=== PATIENT | female | born 1950 | race Hispanic/Latino ===

== ENCOUNTER → 2024-08-23 | Outpatient (CLI) | payer MEDICARE, OTHER ==
--- NOTE | 2024-08-23 09:53 | HMCIMG ---
BONE DENSITOMETRY: HISTORY: POST MENOPAUSAL Comparison: none FINDINGS: BMD measured at AP spine L1-L4 is 0.855 g/cm2 with a T-score of -1.7 Bone density is between 10 and 25% below young normal. This patient is considered osteopenic. Fracture risk is moderate. BMD measured at Left Femoral Neck is 0.747 g/cm2 with a T-score of -1.1 Bone density is between 10 and 25% below young normal. This patient is considered osteopenic. Fracture risk is moderate. BMD measured at Left Femoral Total is 0.750 g/cm2 with a T-score of -1.6 Bone density is between 10 and 25% below young normal. This patient is considered osteopenic. Fracture risk is moderate. IMPRESSION: Osteopenia. Treatment and follow-up recommended.
== END | disposition home or self-care (01) ==
LOC: RAH 08:04
PROVIDERS: ATTEND Internal Medicine
DX: M85.89 Other specified disorders of bone density and structure, multiple sites (principal); Z78.0 Asymptomatic menopausal state
CPT/HCPCS: 77080

== ENCOUNTER 2025-01-07 19:53 | Observation (INO) | payer MEDICARE, OTHER ==
[~2025-01-07] VITALS: Ht 154.9 cm; Wt 56.5 kg
--- NOTE | 2025-01-07 20:24 | ERN ---
ED Note History of Present Illness Stated Complaint: C/O LEFT RIB AREA PAIN RADIATING TO BACK Chief Complaint: Rib Pain Time Seen by MD: 19:58 Time Seen by Midlevel: 19:58 Dictation: The patient is a 74-year-old female with a history of diabetes, hypertension, hyperlipidemia who presents to the emergency department with complaints of left upper back pain that radiates to the front onset two weeks ago. Patient denies any trauma, denies any cough or shortness of breath. Reports she has been seen by her primary doctor who has ordered x-rays and a calcium score. Patient reports her PCP told her that her pain was due to arthritis. Allergies: Coded Allergies: No Known Allergies (Unverified Allergy, Unknown, 01/07/25) Past Medical History Past Medical History: Arthritis, High Cholesterol, Hypertension, Other Additional Past Medical Hx: HX OF OSTEOPOROSIS Surgical History: Hysterectomy, Cholecystectomy RN Note Reviewed/Agreed w/PFSH: Yes Review of System Dictation Constitutional: Negative for fever,chills, and weight loss Eyes: Negative for injury, pain,redness, and discharge ENT: Negative for injury,pain or swelling Cardiovascular: Negative for chest pain, palpitations, and edema Respiratory: Negative for shortness of breath, cough, and wheezing, Abdomen/GI: Negative for abdominal pain, nausea, vomiting, diarrhea, and constipation Back: Negative for injury positive for upper back pain : Negative for injury, bleeding and discharge MS/Extremity: Negative for injury and deformity Skin: Negative for rash, and discoloration Neuro: Negative for headache, weakness, numbness, tingling, and seizure Psych: Negative for suicide ideation, homicidal ideation, and hallucinations Initial Vital Sign VS Vital Signs Date Time Temp Pulse Resp B/P (MAP) Pulse Ox O2 Delivery O2 Flow Rate FiO2 01/07/25 19:58 99.9 105 20 192/105 96 Room Air 01/07/25 21:52 0 21 Physical Exam Dictation Vital Signs reviewed General Appearance: Alert, oriented x 3, no acute distress, well developed, nourished. Head and Face: non-traumatic. Eyes: PERRL, pink conjunctivas, eyelid no trauma, anterior chamber with arcus senilis. Ears: Pinnas intact and no signs of trauma or erythema ear canals clear and no discharge TM no erythema Nose: No discharge, no bleeding. Oropharynx: Mouth normal, tongue pink. pharynx clear,no erythema, tonsils no exudates, no abscesses noted, mucous membrane moist Neck: Supple, non-tender, no thyromegaly, no masses, no JVD, no bruits Breast:Deferred Chest:No tenderness, no crepitus, no paradoxical movement, no retractions Lungs:Clear, well-ventilated, symmetric, no rales, no wheezing, no rhonchi, no stridor, good breath sounds bilaterally Heart: Regular rate, regular rhythm, no murmur, no gallops Vascular: no peripheral edema, Abdomen: Soft, positive bowel sounds, nondistended, no guarding, nontender, no rebound, no masses no hepatomegaly, no splenomegaly, no Bales's sign, no hernias. Rectal: Deferred Genital: Deferred Neurological: Normal speech, motor function intact, sensory function intact Musculoskeletal: Neck nontender, full range of motion, back nontender, full range of motion, Extremities: nontender, full range of motion Skin: Color pink, dry, no turgor, no rash, no lacerations, no abrasions, no contusions. Lymphatic: Deferred Results (Laboratory/Radiology) Laboratory/Radiology Laboratory Tests Test 01/07/25 20:27 01/07/25 20:32 01/07/25 22:04 Influenza Type A Antigen Negative For Type A Influenza Type B Antigen Negative For Type B SARS-CoV-2 Antigen (Rapid) PRESUMPTIVE NEGATIVE White Blood Count 7.7 K/uL (4.8-10.8) Red Blood Count 4.07 MIL/uL (4.00-5.50) Hemoglobin 11.8 g/dL (12.0-16.0) L Hematocrit 34.1 % (36-48) L Mean Corpuscular Volume 83.8 fL (79-99) Mean Corpuscular Hemoglobin 29.0 pg (27.0-33.0) Mean Corpuscular Hemoglobin Concent 34.6 g/dL (32.0-36.0) Red Cell Distribution Width 13.0 % (11.0-15.5) Platelet Count 287 K/uL (130-400) Mean Platelet Volume 10.2 fL (7.5-10.5) Immature Granulocyte % (Auto) 0.5 % (0-1) Neutrophils (%) (Auto) 79.6 % (40.0-77.0) H Lymphocytes (%) (Auto) 12.3 % (21.0-51.0) L Monocytes (%) (Auto) 6.9 % (3.0-13.0) Eosinophils (%) (Auto) 0.3 % (0.0-8.0) Basophils (%) (Auto) 0.4 % (0.0-5.0) Neutrophils # (Auto) 6.1 K/uL (1.8-7.7) Lymphocytes # (Auto) 1.0 K/uL (1.0-4.8) Monocytes # (Auto) 0.5 K/uL (0.1-1.0) Eosinophils # (Auto) 0.02 K/uL (0.00-0.70) Basophils # (Auto) 0.03 K/uL (0.00-0.20) Absolute Immature Granulocyte (auto 0.04 K/uL (0-1) Nucleated Red Blood Cells 0.0 % (0.0-0.19) Sodium Level 128 mmol/L (136-145) L Potassium Level 4.0 mmol/L (3.5-5.1) Chloride Level 90 mmol/L (101-111) *L Carbon Dioxide Level 21 mmol/L (21-32) Blood Urea Nitrogen 13 mg/dL (7-18) Creatinine 0.5 mg/dL (0.5-1.0) Glomerular Filtration Rate Calc 98 mL/min (>90) Random Glucose 110 mg/dL (70-105) H Total Calcium 9.2 mg/dL (8.5-10.1) Total Creatine Kinase 123 U/L (21-232) Troponin I High Sensitivity 7 ng/L (4-50) Urine Color YELLOW (YELLOW) Urine Appearance CLEAR (CLEAR) Urine pH 6.0 (5.0-8.0) Urine Specific [place] 1.010 (1.001-1.031) Urine Protein NEGATIVE mg/dL (NEGATIVE) Urine Glucose (UA) NEGATIVE mg/dL (NEGATIVE) Urine Ketones 40 mg/dL (NEGATIVE) H Urine Occult Blood SMALL (NEGATIVE) H Urine Nitrate NEGATIVE (NEGATIVE) Urine Bilirubin NEGATIVE mg/dL (NEGATIVE) Urine Urobilinogen 0.2 mg/dL (0.2-1.0) Urine Leukocyte Esterase MODERATE Brigette/uL Urine RBC 2-5 /HPF (0-1) H Urine WBC 11-25 /HPF (0-1) H Urine Squamous Epithelial Cells RARE /HPF (0-2) Urine Other Crystals (Auto) 1 /HPF (None Seen) Urine Bacteria RARE /HPF (None Seen) REASON: sob ORDERING PHYSICIAN: TAMIA EASLEY PROCEDURE: CXR1VW - CHEST 1VW EXAM: CR Chest, 1 view CLINICAL HISTORY: Shortness of breath. COMPARISON: Chest radiograph dated 12/11/2024. FINDINGS: The lungs show no infiltrates or other acute findings. Mild bibasilar atelectasis. Mild COPD. No pleural effusion or pneumothorax. The cardiomediastinal silhouette is within normal limits. Mild atherosclerotic aorta. No acute osseous abnormality. IMPRESSION: No acute cardiopulmonary process is evident. Mild bibasilar atelectasis. A new finding. Stable mild COPD. /[place] Labs Reviewed?: Yes EKG: (+) rhythm (With the) EKG Comment: Date:01/07/2025 Time:2022 Ventricular rate:107 DE interval:193 QRS duration:91 QT/QTc:337/450 EKG interpretation: Sinus tachycardia Reviewed by ED Attending No STEMI ED Course ED Course Orders Procedure Category Date Status Time Cbc With Differential LAB 01/07/25 Complete 20:11 Chest 1vw RAD 01/07/25 Resulted 20:11 12 Lead Ekg Tracing- EKG 01/07/25 Complete Technical 20:11 Creatine Kinase, Total LAB 01/07/25 Complete 20:11 Troponin I High LAB 01/07/25 Complete Sensitivity 20:11 Basic Metabolic Panel LAB 01/07/25 Complete 20:11 Covid19 (Sars Antigen LAB 01/07/25 Complete Rapid) 20:11 Influenza Type A & B, LAB 01/07/25 Complete Rapid 20:11 Acetaminophen 500mg PHA 01/07/25 Complete Tab (Tylenol 500mg T 20:30 0.9%Nacl 1000ml (Ns PHA 01/07/25 Complete 1000ml) 21:00 Urinalysis Profile LAB 01/07/25 Complete 21:05 Labetalol 20mg Syg PHA 01/07/25 Complete (Trandate 20mg Syg) 22:00 Culture Urine BHAVNA 01/07/25 Logged 22:13 Ceftriaxone 1g Vial PHA 01/07/25 In Process (Rocephine 1g Inj) 22:30 Edm Admit Bridge Order ADM 01/07/25 Transmitted 22:18 Current Medications Medications (Trade) Dose Ordered Sig/Jaiden Route PRN Reason Start Time Stop Time Status Last Admin Dose Admin Acetaminophen (TYLenol 500MG TAB) 1,000 mg ONCE ONCE PO 01/07/25 20:30 01/07/25 20:31 DC 01/07/25 20:35 Ceftriaxone Sodium (ROCEphine 1G INJ) 1 gm ONCE ONCE IVPB 01/07/25 22:30 01/07/25 22:31 Labetalol HCl (TRANdate 20MG SYG) 10 mg ONCE ONCE IV 01/07/25 22:00 01/07/25 22:01 DC 01/07/25 22:03 Sodium Chloride 1,000 ml @ 0 mls/hr ONCE ONCE IV 01/07/25 21:00 01/07/25 21:02 DC 01/07/25 21:19 Vital Signs Date Time Temp Pulse Resp B/P (MAP) Pulse Ox O2 Delivery O2 Flow Rate FiO2 01/07/25 22:03 100 187/102 01/07/25 21:52 100 18 187/102 97 Room Air* 0 21 01/07/25 19:58 99.9 105 20 192/105 96 Room Air Medical Decision Making MDM MDM: The patient is a 74-year-old female with a history of diabetes, hypertension, hyperlipidemia who presents to the emergency department with complaints of left upper back pain that radiates to the front onset two weeks ago. Patient denies any trauma, denies any cough or shortness of breath. Repo rts she has been seen by her primary doctor who has ordered x-rays and a calcium score. Patient reports her PCP told her that her pain was due to arthritis. CBC showed no leukocytosis, mild normocytic anemia, chemistry showed hyponatremia, hypochloremia, normal renal function, negative troponin, urinalysis positive for leukocyte esterase, serology negative, chest x-ray showed no consolidation. Patient will be admitted for IV hydration and further evaluation and treatment. Differential diagnosis: ACS, pneumonia, back strain Comorbidities: HTN, osteoporosis. Tests considered and not ordered secondary to shared decision making include: none Previous outside records reviewed: none Risk of complication and/or morbidity or mortality of patient management: The patient meets criteria for admission. Need for emergency major/minor surgery: No There are no social concerns with this patient. I independently interpreted the tests I ordered (labs, urinalysis, etc.). I discussed the case with the hospitalist for admission. who accepts admission I discussed the case with the following specialists: none. Historian: pateint. I independently interpreted imaging studies and EKGs that I ordered (US, CT, XR, EKG, etc.). External chart review: none. Medical management and examination interpretation discussions were had by me with other qualified healthcare professionals as indicated for the patient's care. DX & DISP Disposition: Inpatient Decision to Admit Date: Jan 07, 2025 Decision to Admit Time: 22:29 Departure Impression: Primary Impression: Dehydration Additional Impressions: Hypochloremia, Hyponatremia, UTI (urinary tract infection), Uncontrolled hypertension Condition: Stable Referrals: ELIZ TREADWELL MD (PCP) I have reviewed the case, and I agree with, Diagnosis and Plan TAMIA EASLEY [facility] Jan 07, 2025 20:24
--- NOTE | 2025-01-07 20:29 | EKG ---
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
[2025-01-07 20:40] LABS: IMMATURE GRANULOCYTE ABSOLUTE 0.04 K/uL (0-1); NUCLEATED RED BLOOD CELLS 0.0 % (0.0-0.19); PLATELET COUNT (AUTO) 287 K/uL (130-400); RED BLOOD CELL COUNT(AUTO) 4.07 MIL/uL (4.00-5.50); RED CELL DISTRIBUTION WIDTH 13.0 % (11.0-15.5); WHITE BLOOD COUNT (AUTO) 7.7 K/uL (4.8-10.8)
[2025-01-07 20:53] LABS: CREATINE KINASE, TOTAL 123.0 U/L (21-232); GLUCOSE,RANDOM 110.0 mg/dL (70-105); SODIUM SERUM 128.0 mmol/L (136-145); UREA NITROGEN, BLOOD 13.0 mg/dL (7-18)
[2025-01-07 20:54] LABS: CREATININE 0.5 mg/dL (0.5-1.0); GLOMERULAR FILTR. RATE CALC 98.0 mL/min (>90)
[2025-01-07 21:01] LABS: COVID19 (SARS ANTIGEN RAPID) PRESUMPTIVE NEGATIVE (NEGATIVE)
[2025-01-07 21:02] LABS: INFLUENZA TYPE A Negative For Type A (NEGATIVE); INFLUENZA TYPE B Negative For Type B (NEGATIVE)
[2025-01-07] MEDS: 0.9%NACL 1000ML 1,000 ML IV ONE (21:19)
[2025-01-07 22:11] LABS: APPEARANCE,URINE CLEAR (CLEAR); GLUCOSE, URINE (UA) NEGATIVE (NEGATIVE); LEUKOCYTE ESTERASE ,URINE MODERATE Leu/uL (NEGATIVE); NITRATE,URINE NEGATIVE (NEGATIVE); OCCULT BLOOD,URINE SMALL (NEGATIVE)
[2025-01-07 22:12] LABS: ADD UA MICROSCOPIC YES
--- NOTE | 2025-01-07 22:14 | HMCIMG ---
EXAM: CR Chest, 1 view CLINICAL HISTORY: Shortness of breath. COMPARISON: Chest radiograph dated 12/11/2024. FINDINGS: The lungs show no infiltrates or other acute findings. Mild bibasilar atelectasis. Mild COPD. No pleural effusion or pneumothorax. The cardiomediastinal silhouette is within normal limits. Mild atherosclerotic aorta. No acute osseous abnormality. IMPRESSION: No acute cardiopulmonary process is evident. Mild bibasilar atelectasis. A new finding. Stable mild COPD. /[place]
[2025-01-07 22:19] LABS: SQUAMOUS EPITHELIAL CELL,UR RARE /HPF (0-2); UNCLASSIFIED CRYSTAL 1 /HPF (None Seen)
[2025-01-07] MEDS: Solu-medROL 40MG VIAL IVP ONE (22:35)
[2025-01-07] MEDS: 0.9%NACL 1000ML 1,000 ML IV SCH (22:35)
[2025-01-07 23:55] VITALS: BP 164/100; PULSE 88; RESP 21; TEMP 97.6
--- NOTE | 2025-01-07 23:55 | NUR ---
ADMISSION NOTE PATIENT ARRIVED VIA STRETCHER, AMBULATED TO BED WITH STEADY GAIT, WEIGHT TAKEN WITH STANDING SCALE. PATIENT ALERT AND ORIENTED X 4, NO VISIBLE DISTRESS NOTED, PATIENT ABLE TO SIT AT EDGE OF BED WITHOUT DIFFICULTY AND LAY BACK IN BED INDEPENDENTLY WITHOUT DISTRESS. PATIENT STATED NO PAIN AT REST. PER PATIENT, "WHEN I TURN A CERTAIN WAY I GET BACK PAIN TO LEFT SIDE ALMOST TO RIB AREA. I THOUGHT IT WAS A HEART ATTACK." PATIENT DENIES ANY PAIN AT THIS TIME, DECLINED PAIN MEDICATION. PLAN OF CARE DISCUSSED WITH PATIENT AND THAT IS AT BEDSIDE. PATIENT AND ORIENTED TO ROOM, VISITING HOURS, CALL LIGHT BUTTON, LIGHTING, FALL PREVENTION. CALL BUTTON PLACED ON BED WITHIN REACH.
[2025-01-08] VITALS (7 sets, daily range): BP systolic 144–171; BP diastolic 70–88; PULSE 74–85; RESP 18; TEMP 97.9–98.2; O2SAT 94
[2025-01-08] MEDS ORDERED: LISI5TAB21 PO (00:33)
[2025-01-08] MEDS ORDERED: ASPI-1443 PO (00:33)
[2025-01-08] MEDS ORDERED: LISI1TAB51 PO (00:33)
[2025-01-08] MEDS ORDERED: PRAV20TA59 PO (00:33)
[2025-01-08] MEDS ORDERED: UBID200C18 PO (00:33)
[2025-01-08] MEDS ORDERED: CEVI30CA7 PO (00:33)
[2025-01-08] MEDS ORDERED: VITA1CAP17 PO (00:33)
[2025-01-08] MEDS ORDERED: CALC200T16 PO (00:33)
[2025-01-08] MEDS ORDERED: MELO-108 PO (00:33)
[2025-01-08] MEDS ORDERED: CHOL2000 PO (00:33)
[2025-01-08 05:36] LABS: IMMATURE GRANULOCYTE ABSOLUTE 0.04 K/uL (0-1); NUCLEATED RED BLOOD CELLS 0.0 % (0.0-0.19); PLATELET COUNT (AUTO) 257 K/uL (130-400); RED BLOOD CELL COUNT(AUTO) 3.91 MIL/uL (4.00-5.50); RED CELL DISTRIBUTION WIDTH 13.2 % (11.0-15.5); WHITE BLOOD COUNT (AUTO) 4.7 K/uL (4.8-10.8)
[2025-01-08 05:45] LABS: CREATININE 0.6 mg/dL (0.5-1.0); GLOMERULAR FILTR. RATE CALC 94.0 mL/min (>90); GLUCOSE,RANDOM 143.0 mg/dL (70-105); SODIUM SERUM 136.0 mmol/L (136-145); UREA NITROGEN, BLOOD 12.0 mg/dL (7-18)
[2025-01-08] MEDS: ENOXAPARIN SODIUM 30 MG/0.3 ML SQ SCH (07:49)
--- NOTE | 2025-01-08 09:53 | NUR ---
DCP:HOME Pt currently lives at home with her Jason Christianson [phone]. Pt does not have any DME, home health, or provider services. pt states that she is able to complete ADLs independently. PCP is Dr. Adams and uses [facility] for any RX needs. At [place] pt will want to go home and family can assist with transportation. Addendum: 01/08/25 at 0954 by WALE AC SS Amended: Links added.
--- NOTE | 2025-01-08 21:34 | PN ---
PROGRESS NOTE PROGRESS NOTE DATE OF PROGRESS NOTE: 01/08/25 SUBJECTIVE: No new chest VITAL SIGNS Vital Signs Date Time Temp Pulse Resp B/P (MAP) Pulse Ox O2 Delivery O2 Flow Rate FiO2 01/08/25 16:00 97.9 75 18 159/84 97 Room Air 01/08/25 07:30 0 21 PHYSICAL EXAM: Initial Vital Sign VS Vital Signs Date Time Temp Pulse Resp B/P (MAP) Pulse Ox O2 Delivery O2 Flow Rate FiO2 01/07/25 19:58 99.9 105 20 192/105 96 Room Air 01/07/25 21:52 0 21 Physical Exam Dictation Vital Signs reviewed General Appearance: Alert, oriented x 3, no acute distress, well developed, nourished. Head and Face: non-traumatic. Eyes: PERRL, pink conjunctivas, eyelid no trauma, anterior chamber with arcus senilis. Ears: Pinnas intact and no signs of trauma or erythema ear canals clear and no discharge TM no erythema Nose: No discharge, no bleeding. Oropharynx: Mouth normal, tongue pink. pharynx clear,no erythema, tonsils no exudates, no abscesses noted, mucous membrane moist Neck: Supple, non-tender, no thyromegaly, no masses, no JVD, no bruits Breast:Deferred Chest:No tenderness, no crepitus, no paradoxical movement, no retractions Lungs:Clear, well-ventilated, symmetric, no rales, no wheezing, no rhonchi, no stridor, good breath sounds bilaterally Heart: Regular rate, regular rhythm, no murmur, no gallops Vascular: no peripheral edema, Abdomen: Soft, positive bowel sounds, nondistended, no guarding, nontender, no rebound, no masses no hepatomegaly, no splenomegaly, no Bales's sign, no hernias. Rectal: Deferred Genital: Deferred Neurological: Normal speech, motor function intact, sensory function intact Musculoskeletal: Neck nontender, full range of motion, back nontender, full range of motion, Extremities: nontender, full range of motion Skin: Color pink, dry, no turgor, no rash, no lacerations, no abrasions, no contusions. Lymphatic: Deferred LABORATORY: Laboratory Result(s) Test 01/07/25 22:04 01/08/25 05:30 01/08/25 05:40 01/08/25 10:50 Urine Color YELLOW (YELLOW) Urine Appearance CLEAR (CLEAR) Urine pH 6.0 (5.0-8.0) Urine Specific [place] 1.010 (1.001-1.031) Urine Protein NEGATIVE mg/dL (NEGATIVE) Urine Glucose (UA) NEGATIVE mg/dL (NEGATIVE) Urine Ketones 40 mg/dL (NEGATIVE) Urine Occult Blood SMALL (NEGATIVE) Urine Nitrate NEGATIVE (NEGATIVE) Urine Bilirubin NEGATIVE mg/dL (NEGATIVE) Urine Urobilinogen 0.2 mg/dL (0.2-1.0) Urine Leukocyte Esterase MODERATE Brigette/uL Urine RBC 2-5 /HPF (0-1) Urine WBC 11-25 /HPF (0-1) Urine Squamous Epithelial Cells RARE /HPF (0-2) Urine Other Crystals (Auto) 1 /HPF (None Seen) Urine Bacteria RARE /HPF (None Seen) White Blood Count 4.7 K/uL (4.8-10.8) Red Blood Count 3.91 MIL/uL (4.00-5.50) Hemoglobin 11.5 g/dL (12.0-16.0) Hematocrit 32.5 % (36-48) Mean Corpuscular Volume 83.1 fL (79-99) Mean Corpuscular Hemoglobin 29.4 pg (27.0-33.0) Mean Corpuscular Hemoglobin Concent 35.4 g/dL (32.0-36.0) Red Cell Distribution Width 13.2 % (11.0-15.5) Platelet Count 257 K/uL (130-400) Mean Platelet Volume 9.9 fL (7.5-10.5) Immature Granulocyte % (Auto) 0.9 % (0-1) Neutrophils (%) (Auto) 86.0 % (40.0-77.0) Lymphocytes (%) (Auto) 11.4 % (21.0-51.0) Monocytes (%) (Auto) 1.5 % (3.0-13.0) Eosinophils (%) (Auto) 0.0 % (0.0-8.0) Basophils (%) (Auto) 0.2 % (0.0-5.0) Neutrophils # (Auto) 4.0 K/uL (1.8-7.7) Lymphocytes # (Auto) 0.5 K/uL (1.0-4.8) Monocytes # (Auto) 0.1 K/uL (0.1-1.0) Eosinophils # (Auto) 0.00 K/uL (0.00-0.70) Basophils # (Auto) 0.01 K/uL (0.00-0.20) Absolute Immature Granulocyte (auto 0.04 K/uL (0-1) Nucleated Red Blood Cells 0.0 % (0.0-0.19) Sodium Level 136 mmol/L (136-145) Potassium Level 3.8 mmol/L (3.5-5.1) Chloride Level 98 mmol/L (101-111) Carbon Dioxide Level 22 mmol/L (21-32) Blood Urea Nitrogen 12 mg/dL (7-18) Creatinine 0.6 mg/dL (0.5-1.0) Glomerular Filtration Rate Calc 94 mL/min (>90) Random Glucose 143 mg/dL (70-105) Total Calcium 8.9 mg/dL (8.5-10.1) Whole Blood Glucose 152 MG/DL (70-110) 174 MG/DL (70-110) Bedside Glucose Comment Notified Nurse Test 01/08/25 16:37 01/08/25 20:01 Whole Blood Glucose 94 MG/DL (70-110) 118 MG/DL (70-110) Microbiology Results Date/Time Source Procedure Growth Status 01/07/25 22:04 Urine,Clean Catch - Preliminary Resulted INPATIENT MEDS: Current Medications Medications Dose Ordered Sig/Jaiden Start Time Stop Time Status Last Admin Sodium Chloride 1,000 ml @ 100 mls/hr Q10H 01/07/25 22:30 02/06/25 22:29 01/08/25 18:33 Enoxaparin Sodium 30 mg DAILY 01/08/25 09:00 02/07/25 08:59 01/08/25 07:49 Ceftriaxone Sodium 1 gm Q24H 01/08/25 22:30 01/18/25 22:29 Hydromorphone HCl 0.5 mg Q4H PRN 01/07/25 22:30 01/12/25 22:29 Ondansetron HCl 4 mg Q6H PRN 01/07/25 22:30 02/06/25 22:29 Insulin Human Regular INSULIN SLIDING SCAL... ACHS 01/08/25 07:30 02/07/25 07:29 Clonidine HCl 0.1 mg Q4H PRN 01/08/25 07:00 02/07/25 06:59 Lisinopril 5 mg DAILY 01/09/25 09:00 02/08/25 08:59 Home Med DAILY 01/09/25 09:00 02/08/25 08:59 Home Med TID 01/09/25 09:00 02/08/25 08:59 Home Med DAILY 01/09/25 09:00 02/08/25 08:59 Home Med HS 01/09/25 21:00 02/08/25 20:59 Atorvastatin Calcium 20 mg HS 01/09/25 21:00 02/08/25 20:59 Home Med DAILY 01/09/25 09:00 02/08/25 08:59 Home Med DAILY 01/09/25 09:00 02/08/25 08:59 PROBLEM LIST: (1) Uncontrolled hypertension ICD Code: I10 - Essential (primary) hypertension (2) Hyponatremia ICD Code: E87.1 - Hypo-osmolality and hyponatremia PLAN: Noncardiac chest pain likely musculoskeletal cardiac enzymes to be monitored low risk for coronary artery disease with low cardiac calcium score Resume pain control follow-through ELIZ TREADWELL MD Jan 08, 2025 21:34
--- NOTE | 2025-01-08 21:34 | HP ---
HISTORY AND PHYSICAL NOTE DATE OF CONSULTATION: 01/08/25 REASON FOR CONSULTATION: chest pain HISTORY OF PRESENT ILLNESS: The patient is a 74-year-old female with a history of diabetes, hypertension, hyperlipidemia who presents to the emergency department with complaints of left upper back pain that radiates to the front onset two weeks ago. Patient denies any trauma, denies any cough or shortness of breath. Reports she has been seen by her primary doctor who has ordered x-rays and a calcium score. Patient reports her PCP told her that her pain was due to arthritis. Allergies: Coded Allergies: No Known Allergies (Unverified Allergy, Unknown, 01/07/25) Past Medical History Past Medical History: Arthritis, High Cholesterol, Hypertension, Other Additional Past Medical Hx: HX OF OSTEOPOROSIS Surgical History: Hysterectomy, Cholecystectomy RN Note Reviewed/Agreed w/PFSH: Yes Review of System Dictation Constitutional: Negative for fever,chills, and weight loss Eyes: Negative for injury, pain,redness, and discharge ENT: Negative for injury,pain or swelling Cardiovascular: Negative for chest pain, palpitations, and edema Respiratory: Negative for shortness of breath, cough, and wheezing, Abdomen/GI: Negative for abdominal pain, nausea, vomiting, diarrhea, and constipation Back: Negative for injury positive for upper back pain : Negative for injury, bleeding and discharge MS/Extremity: Negative for injury and deformity Skin: Negative for rash, and discoloration Neuro: Negative for headache, weakness, numbness, tingling, and seizure Psych: Negative for suicide ideation, homicidal ideation, and hallucinations ALLERGIES: Coded Allergies: No Known Allergies (Unverified Allergy, Unknown, 01/07/25) HOME MEDS: Reported Medications Vitamin B Complex & Vit C No.3 (B Complex with Vitamin C) 15-10-300 Capsule, 1 CAP PO DAILY for 7 Days, #7 CAP 0 Refills 01/08/25 Calcium Citrate (Calcium Citrate) 200 Mg (950 Mg) Tablet, 600 MG PO DAILY, TAB 01/08/25 Ubidecarenone (Co Q-10) 200 Mg Capsule, 1 CAP PO DAILY for 30 Days, #30 CAP 0 Refills 01/08/25 Cholecalciferol (Vitamin D3) (Vitamin D3) 50 Mcg (2000 Unit) Capsule, 1 CAP PO DAILY for 30 Days, #30 CAP 0 Refills 01/08/25 Cevimeline HCl (Cevimeline HCl) 30 Mg Capsule, 1 CAP PO TID for 30 Days, #90 CAP 0 Refills 01/08/25 Pravastatin Sodium (Pravastatin Sodium) 20 Mg Tablet, 1 TAB PO HS for 30 Days, #30 TAB 0 Refills 01/08/25 Lisinopril (Lisinopril) 5 Mg Tablet, 1 TAB PO DAILY for 30 Days, #30 TAB 0 Refills 01/08/25 Lisinopril/Hydrochlorothiazide (Lisinopril-Hctz 20-12.5 mg Tab) 20 Mg-12.5 Mg Tablet, 1 TAB PO HS for 30 Days, #30 TAB 0 Refills 01/08/25 Aspirin (Aspirin EC) 81 Mg Tablet.dr, 1 TAB PO DAILY for 30 Days, #30 TAB 0 Refills 01/08/25 Discontinued Reported Medications Meloxicam (Meloxicam) 15 Mg Tablet, 0.5 TAB PO DAILY for 30 Days, #30 TAB 0 Refills 01/08/25 INPATIENT MEDS: Current Medications Medications Dose Ordered Sig/Jaiden Start Time Stop Time Status Last Admin Sodium Chloride 1,000 ml @ 100 mls/hr Q10H 01/07/25 22:30 02/06/25 22:29 01/08/25 18:33 Enoxaparin Sodium 30 mg DAILY 01/08/25 09:00 02/07/25 08:59 01/08/25 07:49 Ceftriaxone Sodium 1 gm Q24H 01/08/25 22:30 01/18/25 22:29 Hydromorphone HCl 0.5 mg Q4H PRN 01/07/25 22:30 01/12/25 22:29 Ondansetron HCl 4 mg Q6H PRN 01/07/25 22:30 02/06/25 22:29 Insulin Human Regular INSULIN SLIDING SCAL... ACHS 01/08/25 07:30 02/07/25 07:29 Clonidine HCl 0.1 mg Q4H PRN 01/08/25 07:00 02/07/25 06:59 Lisinopril 5 mg DAILY 01/09/25 09:00 02/08/25 08:59 Home Med DAILY 01/09/25 09:00 02/08/25 08:59 Home Med TID 01/09/25 09:00 02/08/25 08:59 Home Med DAILY 01/09/25 09:00 02/08/25 08:59 Home Med HS 01/09/25 21:00 02/08/25 20:59 Atorvastatin Calcium 20 mg HS 01/09/25 21:00 02/08/25 20:59 Home Med DAILY 01/09/25 09:00 02/08/25 08:59 Home Med DAILY 01/09/25 09:00 02/08/25 08:59 VITAL SIGNS Vital Signs Date Time Temp Pulse Resp B/P (MAP) Pulse Ox O2 Delivery O2 Flow Rate FiO2 01/08/25 16:00 97.9 75 18 159/84 97 Room Air 01/08/25 12:00 98.1 74 18 144/70 95 Room Air 01/08/25 08:00 98.2 81 18 160/74 94 Room Air 01/08/25 07:30 94 Room Air* 0 21 01/08/25 03:00 97.9 85 18 157/76 93 Room Air 01/08/25 01:07 Room Air* 0 21 01/07/25 23:55 97.5 88 21 164/100 92 Room Air 01/07/25 23:09 76 18 175/88 96 Room Air* 0 21 01/07/25 22:03 100 187/102 01/07/25 21:52 100 18 187/102 97 Room Air* 0 21 PHYSICAL EXAM Initial Vital Sign VS Vital Signs Date Time Temp Pulse Resp B/P (MAP) Pulse Ox O2 Delivery O2 Flow Rate FiO2 01/07/25 19:58 99.9 105 20 192/105 96 Room Air 01/07/25 21:52 0 21 Physical Exam Dictation Vital Signs reviewed General Appearance: Alert, oriented x 3, no acute distress, well developed, nourished. Head and Face: non-traumatic. Eyes: PERRL, pink conjunctivas, eyelid no trauma, anterior chamber with arcus senilis. Ears: Pinnas intact and no signs of trauma or erythema ear canals clear and no discharge TM no erythema Nose: No discharge, no bleeding. Oropharynx: Mouth normal, tongue pink. pharynx clear,no erythema, tonsils no exudates, no abscesses noted, mucous membrane moist Neck: Supple, non-tender, no thyromegaly, no masses, no JVD, no bruits Breast:Deferred Chest:No tenderness, no crepitus, no paradoxical movement, no retractions Lungs:Clear, well-ventilated, symmetric, no rales, no wheezing, no rhonchi, no stridor, good breath sounds bilaterally Heart: Regular rate, regular rhythm, no murmur, no gallops Vascular: no peripheral edema, Abdomen: Soft, positive bowel sounds, nondistended, no guarding, nontender, no rebound, no masses no hepatomegaly, no splenomegaly, no Bales's sign, no hernias. Rectal: Deferred Genital: Deferred Neurological: Normal speech, motor function intact, sensory function intact Musculoskeletal: Neck nontender, full range of motion, back nontender, full range of motion, Extremities: nontender, full range of motion Skin: Color pink, dry, no turgor, no rash, no lacerations, no abrasions, no contusions. Lymphatic: Deferred LABORATORY RESULTS Laboratory Tests 01/07/25 20:27: Influenza Type A Antigen Negative For Type A, Influenza Type B Antigen Negative For Type B, SARS-CoV-2 Antigen (Rapid) PRESUMPTIVE NEGATIVE 01/07/25 20:32: White Blood Count 7.7, Red Blood Count 4.07, Hemoglobin 11.8, Hematocrit 34.1, Mean Corpuscular Volume 83.8, Mean Corpuscular Hemoglobin 29.0, Mean Corpuscular Hemoglobin Concent 34.6, Red Cell Distribution Width 13.0, Platelet Count 287, Mean Platelet Volume 10.2, Immature Granulocyte % (Auto) 0.5, Neutrophils (%) (Auto) 79.6, Lymphocytes (%) (Auto) 12.3, Monocytes (%) (Auto) 6.9, Eosinophils (%) (Auto) 0.3, Basophils (%) (Auto) 0.4, Neutrophils # (Auto) 6.1, Lymphocytes # (Auto) 1.0, Monocytes # (Auto) 0.5, Eosinophils # (Auto) 0.02, Basophils # (A uto) 0.03, Absolute Immature Granulocyte (auto 0.04, Nucleated Red Blood Cells 0.0, Sodium Level 128, Potassium Level 4.0, Chloride Level 90, Carbon Dioxide Level 21, Blood Urea Nitrogen 13, Creatinine 0.5, Glomerular Filtration Rate Calc 98, Random Glucose 110, Total Calcium 9.2, Total Creatine Kinase 123, Troponin I High Sensitivity 7 01/07/25 22:04: Urine Color YELLOW, Urine Appearance CLEAR, Urine pH 6.0, Urine Specific [place] 1.010, Urine Protein NEGATIVE, Urine Glucose (UA) NEGATIVE, Urine Ketones 40, Urine Occult Blood SMALL, Urine Nitrate NEGATIVE, Urine Bilirubin NEGATIVE, Urine Urobilinogen 0.2, Urine Leukocyte Esterase MODERATE, Urine RBC 2-5, Urine WBC 11-25, Urine Squamous Epithelial Cells RARE, Urine Other Crystals (Auto) 1, Urine Bacteria RARE 01/08/25 05:30: White Blood Count 4.7, Red Blood Count 3.91, Hemoglobin 11.5, Hematocrit 32.5, Mean Corpuscular Volume 83.1, Mean Corpuscular Hemoglobin 29.4, Mean Corpuscular Hemoglobin Concent 35.4, Red Cell Distribution Width 13.2, Platelet Count 257, Mean Platelet Volume 9.9, Immature Granulocyte % (Auto) 0.9, Neutrophils (%) (Auto) 86.0, Lymphocytes (%) (Auto) 11.4, Monocytes (%) (Auto) 1.5, Eosinophils (%) (Auto) 0.0, Basophils (%) (Auto) 0.2, Neutrophils # (Auto) 4.0, Lymphocytes # (Auto) 0.5, Monocytes # (Auto) 0.1, Eosinophils # (Auto) 0.00, Basophils # (Auto) 0.01, Absolute Immature Granulocyte (auto 0.04, Nucleated Red Blood Cells 0.0, Sodium Level 136, Potassium Level 3.8, Chloride Level 98, Carbon Dioxide Level 22, Blood Urea Nitrogen 12, Creatinine 0.6, Glomerular Filtration Rate Calc 94, Random Glucose 143, Total Calcium 8.9 01/08/25 05:40: Whole Blood Glucose 152, Bedside Glucose Comment Notified Nurse 01/08/25 10:50: Whole Blood Glucose 174 01/08/25 16:37: Whole Blood Glucose 94 01/08/25 20:01: Whole Blood Glucose 118 Microbiology Date/Time Source Procedure Growth Status 01/07/25 22:04 Urine,Clean Catch - Preliminary Resulted PROBLEM LIST: (1) Uncontrolled hypertension ICD Codes: I10 - Essential (primary) hypertension (2) Hyponatremia ICD Codes: E87.1 - Hypo-osmolality and hyponatremia PLAN Noncardiac chest pain likely musculoskeletal cardiac enzymes to be monitored low risk for coronary artery disease with low cardiac calcium score Resume pain control follow-through ELIZ TRAEDWELL MD Jan 08, 2025 21:34
[2025-01-09] MEDS ORDERED: ACET-3859 PO (00:08)
[2025-01-09 01:47] VITALS: BP 138/71
[2025-01-09 04:00] VITALS: BP 123/64; PULSE 88; RESP 18; TEMP 97.7
--- NOTE | 2025-01-09 06:30 | NUR ---
CT PATIENT OUT OF ROOM TO CT SCAN.
--- NOTE | 2025-01-09 07:08 | HMCIMG ---
EXAM: CT Chest Without IV contrast. CLINICAL HISTORY: SEVERE RIB/BACK PAIN TECHNIQUE: Axial computed tomography images of the chest without intravenous contrast. COMPARISON: Chest radiograph dated 01/08/2022. FINDINGS: LUNGS: Bibasilar linear atelectasis. No pulmonary mass. PLEURAL SPACES: No pneumothorax evident. No pleural effusions. Mild bilateral basal pleural thickening. HEART: No cardiomegaly. No significant pericardial effusion. LYMPH NODES: No lymphadenopathy is evident. UPPER ABDOMEN: The upper abdominal solid organs are unremarkable. BONES: No acute osseous abnormality. Mild osteopenia with degenerative changes in the visualized dorsal vertebrae. IMPRESSION: No acute intra-thoracic abnormality. Bibasilar linear atelectasis. Mild bilateral basal pleural thickening. /[place]
[2025-01-09 08:00] VITALS: BP 162/83; PULSE 79; RESP 20; TEMP 98; O2SAT 94
[2025-01-09] MEDS: LISINOPRIL 5 MG TABLET PO SCH (08:24)
[2025-01-09] MEDS: CEVIMELINE HCL PO SCH (08:25)
[2025-01-09] MEDS: CALCIUM CITRATE 600 MG PO SCH (08:25)
[2025-01-09] MEDS: (Vitamin B Complex & Vit C No.3 (B Complex with Vitamin C) PO SCH (08:25)
--- NOTE | 2025-01-09 13:27 | NUR ---
PATIENT DISCHARGED HOME ID BAND AND IV REMOVED. DISCHARGE INSTRUCTIONS EXPLAINED AND GIVEN TO PATIENT. PATIENT VERBALIZED UNDERSTANDING. BELONGINGS PACKED AND TAKE BY PATIENT. WHEELED DOWN TO PRIVATE CAR.
--- NOTE | 2025-01-09 20:53 | DS ---
Discharge Summary DIAGNOSE(S): [Back pain] HOSPITAL COURSE SUMMARY: [She presented with noncardiac chest pain negative cardiac enzymes MRI of the thoracic spine was done and to be followed as an outpatient] TOWER ATTENDANT(S): [] PROCEDURE(S)/TREATMENT(S): [] PROBLEM(S): [] FOLLOW-UP TEST(S): [] DISCHARGE INSTRUCTIONS: [Follow up with PCP 1-2 days] Home Meds Reported Medications Acetaminophen (Acetaminophen) 325 Mg Tablet, 1 TAB PO Q4HPRN PRN for pain or fever for 24 Days, #100 TAB 0 Refills 01/09/25 Vitamin B Complex & Vit C No.3 (B Complex with Vitamin C) 15-10-300 Capsule, 1 CAP PO DAILY for 7 Days, #7 CAP 0 Refills 01/08/25 Calcium Citrate (Calcium Citrate) 200 Mg (950 Mg) Tablet, 600 MG PO DAILY, TAB 01/08/25 Ubidecarenone (Co Q-10) 200 Mg Capsule, 1 CAP PO DAILY for 30 Days, #30 CAP 0 Refills 01/08/25 Cholecalciferol (Vitamin D3) (Vitamin D3) 50 Mcg (2000 Unit) Capsule, 1 CAP PO DAILY for 30 Days, #30 CAP 0 Refills 01/08/25 Cevimeline HCl (Cevimeline HCl) 30 Mg Capsule, 1 CAP PO TID for 30 Days, #90 CAP 0 Refills 01/08/25 Pravastatin Sodium (Pravastatin Sodium) 20 Mg Tablet, 1 TAB PO HS for 30 Days, #30 TAB 0 Refills 01/08/25 Lisinopril (Lisinopril) 5 Mg Tablet, 1 TAB PO DAILY for 30 Days, #30 TAB 0 Refills 01/08/25 Lisinopril/Hydrochlorothiazide (Lisinopril-Hctz 20-12.5 mg Tab) 20 Mg-12.5 Mg Tablet, 1 TAB PO HS for 30 Days, #30 TAB 0 Refills 01/08/25 Aspirin (Aspirin EC) 81 Mg Tablet.dr, 1 TAB PO DAILY for 30 Days, #30 TAB 0 Refills 01/08/25 Discontinued Reported Medications Meloxicam (Meloxicam) 15 Mg Tablet, 0.5 TAB PO DAILY for 30 Days, #30 TAB 0 Refills 01/08/25 ELIZ TREADWELL MD Jan 09, 2025 20:53
[2025-01-09] MEDS ORDERED: [UNRECOGNIZED DRUG - OTHER] PO SCH (21:00)
[2025-01-09] MEDS ORDERED: LISINOPRIL PO SCH (21:00)
[2025-01-09] MEDS ORDERED: HYDROCHLOROTHIAZIDE PO SCH (21:00)
--- NOTE | 2025-01-10 11:15 | HMCIMG ---
EXAM: MR Thoracic Spine Without Intravenous Contrast. CLINICAL HISTORY: Severe back pain. TECHNIQUE: Magnetic resonance images of the thoracic spine in multiple planes. CONTRAST: None. COMPARISON: None. FINDINGS: The cervicothoracic and thoracolumbar junction is intact. Normal thoracic curvature. Mild compression of the superior endplates of T5 and T6 vertebral bodies is identified by approximately 25%. Old wedge compression of the T7 vertebral body by up to 40%. Mild reduction in T8 and T9 vertebral body height by 20%. There is subtle marrow edema in the T5-T9 vertebral bodies. Multilevel Schmorl???s nodes. Normal rest of the vertebral body and disc heights. Normal marrow signal of the vertebrae. The thoracic cord is in an anatomic location without abnormal signals. No abnormal extra-axial masses are present. The prevertebral and paravertebral soft tissues are within normal limits. 10 mm cortical cyst in the upper pole of the right kidney. 5 mm cyst in the right lobe of the liver. [id number] findings are as follows: C7-T1: Mild disc bulge of 1 mm. No neural foraminal, lateral recess, or spinal canal stenosis. T1-T2: Mild disc bulge of 1 mm. No neural foraminal, lateral recess, or spinal canal stenosis. T2-T3: Mild disc bulge of 1 mm. No neural foraminal, lateral recess, or spinal canal stenosis. T3-T4: Mild disc bulge of 1 mm. No neural foraminal, lateral recess, or spinal canal stenosis. T4-T5: Mild disc bulge of 1 mm. No neural foraminal, lateral recess, or spinal canal stenosis. T5-T6: Mild disc bulge of 1 mm. No neural foraminal, lateral recess, or spinal canal stenosis. T6-T7: Mild disc bulge of 1 mm. No neural foraminal, lateral recess, or spinal canal stenosis. T7-T8: Mild disc bulge of 1 mm. No neural foraminal, lateral recess, or spinal canal stenosis. T8-T9: Mild disc bulge of 1 mm. No neural foraminal, lateral recess, or spinal canal stenosis. T9-T10: Mild disc bulge of 1 mm. No neural foraminal, lateral recess, or spinal canal stenosis. T10-T11: Mild disc bulge of 1 mm. No neural foraminal, lateral recess, or spinal canal stenosis. T11-T12: Mild disc bulge of 1 mm. No neural foraminal, lateral recess, or spinal canal stenosis. T12-L1: Mild disc bulge of 1 mm. No neural foraminal, lateral recess, or spinal canal stenosis. IMPRESSION: 1. Mild compression of the superior endplates of T5 and T6 vertebral bodies by approximately 25%. Old wedge compression of the T7 vertebral body by up to 40%. Mild reduction in T8 and T9 vertebral body height by 20%. There is subtle marrow edema in the T5-T9 vertebral bodies. Multilevel Schmorl???s nodes. 2. Mild disc bulge of 1 mm at all levels. No neural foraminal, lateral recess, or spinal canal stenosis. /[place]
== END 2025-01-09 13:21 | disposition home or self-care (01) ==
LOC: EDH 19:53 → EDHIP 22:21 → 3AH 23:48
PROVIDERS: ADMIT Internal Medicine; ATTEND Internal Medicine
DX: M54.6 Pain in thoracic spine (principal); E11.9 Type 2 diabetes mellitus without complications; E78.00 Pure hypercholesterolemia, unspecified; E86.0 Dehydration; E87.1 Hypo-osmolality and hyponatremia; I10 Essential (primary) hypertension; J44.9 Chronic obstructive pulmonary disease, unspecified; M19.90 Unspecified osteoarthritis, unspecified site; E87.8 Other disorders of electrolyte and fluid balance, not elsewhere classified; N39.0 Urinary tract infection, site not specified; Z20.822 Contact with and (suspected) exposure to COVID-19; Z90.710 Acquired absence of both cervix and uterus; Z79.899 Other long term (current) drug therapy; Z98.890 Other specified postprocedural states
CPT/HCPCS: 96365; 96375; 99285; 82550; 84484; 80048 ×2; 85025 ×2; 87086 ×2; 87186; 87804 ×2; 87426; 81001; 36415 ×2; 71045; 93005; 96376; 96372 ×2; 96361; 82948 ×5; 72146; 71250; G0378 ×39; J7030 ×2; J0696 ×2; J2919; J1650 ×2